=== PATIENT | male | born 1990 ===

== ENCOUNTER 2019-01-04 13:15 | Emergency (ER) | payer OTHER ==
[2019-01-04 16:26] VITALS: BP 145/81
--- NOTE | 2019-01-04 16:40 | ED ---
Lower Extremity - HPI Summary HPI Summary: Patient is a 28yo M with no PMH - History of Current Complaint Chief Complaint: EDExtremityLower Stated Complaint: LEFT ANKLE INJURY PER PT Time Seen by Provider: 01/04/19 13:30 Hx Obtained From: Patient Mechanism Of Injury: Twisted Onset of Pain: Minutes Onset/Duration: Minutes Severity Initially: Mild Severity Currently: Mild Pain Intensity: 0 Pain Scale Used: 0-10 Numeric Timing: Constant Location: Is Discrete @ - left ankle pain and swelling with ecchymosis Character Of Pain: Aching Associated Signs And Symptoms: Positive: Swelling, Bruising. Negative: Weakness , Dizziness, Syncope Aggravating Factor(s): Standing, Ambulation, Movement Alleviating Factor(s): Rest Able to Bear Weight: No - Risk Factors Gout Risk Factors: Negative DVT Risk Factors: Negative Septic Arthritis Risk Factor: Negative - Allergies/Home Medications Allergies/Adverse Reactions: Allergies Allergy/AdvReac Type Severity Reaction Status Date / Time No Known Allergies Allergy Verified 01/04/19 13:20 PMH/Surg Hx/FS Hx/Imm Hx Previously Healthy: Yes - Immunization History Hx Pertussis Vaccination: No Immunizations Up to Date: Yes Infectious Disease History: No Infectious Disease History: Denies: Traveled Outside the [place] in Last 30 Days - Social History Occupation: Employed Part-time Lives: With Family Alcohol Use: Occasionally Hx Substance Use: No Substance Use Type: Reports: None Hx Tobacco Use: No Smoking Status (MU): Never Smoked Tobacco Review of Systems Constitutional: Negative Negative: Fever, Chills, Fatigue, Skin Diaphoresis Negative: Epistaxis Negative: Palpitations, Chest Pain Negative: Shortness Of Breath, Cough Genitourinary: Negative Positive: no symptoms reported, see HPI Positive: Bruising, Other - swelling Neurological: Negative All Other Systems Reviewed And Are Negative: Yes Physical Exam Triage Information Reviewed: Yes Vital Signs On Initial Exam: Initial Vitals Temp Pulse Resp BP Pulse Ox 98.6 F 94 18 130/85 97 01/04/19 13:17 01/04/19 13:17 01/04/19 13:17 01/04/19 13:17 01/04/19 13:17 Vital Signs Reviewed: Yes Appearance: Positive: Well-Appearing, Well-Nourished Skin: Positive: Warm, Skin Color Reflects Adequate Perfusion Head/Face: Positive: Normal Head/Face Inspection Eyes: Positive: Conjunctiva Clear Neck: Positive: Supple, No Lymphadenopathy Respiratory/Lung Sounds: Positive: Clear to Auscultation, Breath Sounds Present Cardiovascular: Positive: RRR, Pulses are Symmetrical in both Upper and Lower Extremities Musculoskeletal: Positive: Normal, Strength/ROM Intact, Limited @ - flexion and extension, Pain @ - swelling and ecchymosis. Negative: Edema Left, Edema Right Psychiatric: Positive: Affect/Mood Appropriate Diagnostics - Vital Signs Vital Signs Temp Pulse Resp BP Pulse Ox 01/04/19 16:25 98.5 F 98 16 145/81 97 01/04/19 13:17 98.6 F 94 18 130/85 97 - Laboratory Lab Statement: Any lab studies that have been ordered have been reviewed, and results considered in the medical decision making process. - Radiology No standard instances Radiology Interpretation Completed By: Radiologist - Bimalleolar fracture Lower Extremity Course/Dx - Course Course Of Treatment: During the course of treatment, the patient is evaluated for left ankle pain. There is swelling and ecchymosis to the left ankle both medially and laterally. Patient is able to flex and extend, however with pain. There is no pain to the lower extremity otherwise. No pain to the toes or to the knees. No pain to the dorsum of the foot. There is no open areas to consider an open fracture. No abrasions or lacerations. He denies any numbness or tingling. Pulses +2 intact bilaterally. X-ray of the left ankle shows a bimalleolar fracture with an oblique displaced distal fibula and medial malleolus fracture which is nondisplaced. Discussed case with Dr. Molina who recommends posterior walking splint with good padding and close follow-up. Patient states he has an orthopedic physician back home he will see and he is leaving on a flight tomorrow back to [place]. I've discussed nonweightbearing, crutches, continuing with the splint until orthopedic follow- up, elevation above the heart and ibuprofen. I have also given him something for breakthrough pain which is not well controlled with ibuprofen. He states he is okay with this plan and discharged. Disc given to him on discharge of his images. - Diagnoses Differential Diagnosis/HQI/PQRI: Positive: Fracture (Closed), Fracture (Open) Provider Diagnoses: Bimalleolar ankle fracture Discharge - Sign-Out/Discharge Documenting (check all that apply): Patient Departure Patient Received Moderate/Deep Sedation with Procedure: No - Discharge Plan Condition: Stable Disposition: HOME Prescriptions: HYDROcodone/ACETAMIN 5-325 MG* [[place] 5-325 TAB*] 1 tab PO Q4H PRN #[id number] tab MDD 6 PRN Reason: Pain Patient Education Materials: Ankle Fracture (ED) Referrals: No Primary Care Phys,NOPCP [Primary Care Provider] - Additional Instructions: You have been diagnosed with a: Bimalleolar Fracture Please follow up with orthopedic physician in your hometown I have given you pain control medications Please do not drink while taking this medication Ibuprofen 600mg 3-4 times daily for inflammation On opposite schedule, please take your pain control as needed Keep the area elevated as much as possible Crutches for ambulation Do not bear any weight to the area Keep the splint applied and do not get wet - Billing Disposition and Condition Condition: STABLE Disposition: Home
== END 2019-01-04 16:25 | disposition home or self-care (01) ==
LOC: ED 13:15
DX: S82.845A Nondisplaced bimalleolar fracture of left lower leg, initial encounter for closed fracture (principal); X50.1XXA Overexertion from prolonged static or awkward postures, initial encounter; Y92.9 Unspecified place or not applicable
CPT/HCPCS: 99282